=== PATIENT | female | born 1980 | race Caucasian/White ===

== ENCOUNTER → 2016-11-22 | Outpatient (CLI) | payer OTHER | LOC: LAB 13:04 | DX: E03.9 Hypothyroidism, unspecified (principal) ==

== ENCOUNTER → 2017-11-20 | Outpatient (CLI) | payer OTHER | LOC: LAB 08:54 | PROVIDERS: Family Medicine | DX: E03.9 Hypothyroidism, unspecified (principal); E78.00 Pure hypercholesterolemia, unspecified ==

== ENCOUNTER 2017-12-15 01:28 | Emergency (ER) | payer OTHER ==
[~2017-12-15] VITALS: Ht 160 cm; Wt 135.5 kg
[2017-12-15] MEDS ORDERED: SYNTHROID0.125 MG PO (01:48)
[2017-12-15] MEDS ORDERED: COUMADIN 77.5 MG/TAB PO (01:48)
[2017-12-15] MEDS ORDERED: COUMADIN 5MG5 MG/TAB PO (01:49)
[2017-12-15 02:54] LABS: BASO # 0.1 (0.02-0.10); EOS # 0.3 (0.04-0.40); EOS % 3.2 % (1.0-5.0); HEMATOCRIT 39.6 % (37.0-47.0); HEMOGLOBIN 12.8 g/dL (12.5-16.0); LYMPH# 2.9 (1.50-4.00); MEAN CELL VOLUME 80 fl (78-100); MEAN CORPUSCULAR HEMOGLOBIN 26 pg (27-31); MEAN CORPUSCULAR HGB CONC 32 g/dL (33-37); MEAN PLATELET VOLUME 8.9 fl (7.4-10.4); MONO # 0.7 (0.20-0.80); NEU # 5.6 (1.40-6.50); PLATELET COUNT 404 K/mm3 (130-400); RED BLOOD COUNT 4.96 M/mm3 (4.10-5.30); RED CELL DISTRIBUTION WIDTH 15.2 % (11.5-14.5); WHITE BLOOD COUNT 9.6 K/mm3 (4.8-10.8)
[2017-12-15 03:14] LABS: PROTHROMBIN TIME 21.1 SECONDS (9.0-12.0)
[2017-12-15 03:28] LABS: D-DIMER 0.1 mg/L FEU (0.15-0.50)
[2017-12-15] MEDS ORDERED: ULTRAM50 M1 PO (03:48)
[2017-12-15 04:00] VITALS: BP 164/78
== END 2017-12-15 04:00 | disposition home or self-care (01) ==
LOC: ED 01:28
PROVIDERS: Nurse Practitioner Primary Care
DX: S76.912A Strain of unspecified muscles, fascia and tendons at thigh level, left thigh, initial encounter (principal); Z86.718 Personal history of other venous thrombosis and embolism; Z79.01 Long term (current) use of anticoagulants; D68.2 Hereditary deficiency of other clotting factors

== ENCOUNTER → 2018-11-24 | Outpatient (CLI) | payer BC ==
[~2018-11-24] MED LIST: COUMADIN 5MG5 MG/TAB PO; COUMADIN 77.5 MG/TAB PO; SYNTHROID0.125 MG PO; ULTRAM50 M1 PO
== END ==
LOC: LAB 13:44
DX: E03.9 Hypothyroidism, unspecified (principal); E78.00 Pure hypercholesterolemia, unspecified

== ENCOUNTER → 2019-11-22 | Outpatient (CLI) | payer BC ==
[2019-11-22 08:58] LABS: POTASSIUM 4.6 mmol/L (3.5-5.1)
[2019-11-22 08:59] LABS: CALCIUM 9.4 mg/dL (8.3-10.5)
[2019-11-22 09:01] LABS: TOTAL PROTEIN 7.9 g/dL (6.4-8.3)
[2019-11-22 09:02] LABS: TOTAL BILIRUBIN 0.3 mg/dL (0.2-1.2)
== END ==
LOC: LAB 08:31
PROVIDERS: Family Medicine
DX: Z13.6 Encounter for screening for cardiovascular disorders (principal); E03.9 Hypothyroidism, unspecified; E78.00 Pure hypercholesterolemia, unspecified; E66.01 Morbid (severe) obesity due to excess calories

== ENCOUNTER → 2020-02-07 | Outpatient (CLI) | payer BC ==
[2020-02-07 12:24] LABS: URINE APPEARANCE CLEAR; URINE BILIRUBIN NEGATIVE (NEGATIVE); URINE BLOOD TRACE (NEGATIVE); URINE COLOR YELLOW; URINE GLUCOSE NEGATIVE (NEGATIVE); URINE KETONE NEGATIVE (NEGATIVE); URINE LEUKOCYTE ESTERASE NEGATIVE (NEGATIVE); URINE NITRATE NEGATIVE (NEGATIVE); URINE PROTEIN(semi-quant) NEGATIVE (NEGATIVE); URINE UROBILINOGEN NORMAL (NORMAL)
== END ==
LOC: LAB 12:01
PROVIDERS: Family Medicine
DX: Z51.81 Encounter for therapeutic drug level monitoring (principal); R10.814 Left lower quadrant abdominal tenderness

== ENCOUNTER → 2020-02-18 | Outpatient (CLI) | payer BC | LOC: LAB 10:58 | DX: E03.9 Hypothyroidism, unspecified (principal); E78.00 Pure hypercholesterolemia, unspecified ==

== ENCOUNTER → 2020-06-07 | Outpatient (CLI) | payer BC ==
[2020-06-07 12:13] LABS: PROTHROMBIN TIME 20.5 SECONDS (9.0-12.0)
== END ==
LOC: LAB 11:46
PROVIDERS: Family Medicine
DX: D68.51 Activated protein C resistance (principal)

== ENCOUNTER → 2020-10-10 | Outpatient (CLI) | payer BC ==
[2020-10-10 12:42] LABS: PROTHROMBIN TIME 22.2 SECONDS (9.0-12.0)
== END ==
LOC: LAB 12:17
PROVIDERS: Family Medicine
DX: D68.51 Activated protein C resistance (principal)

== ENCOUNTER → 2021-03-13 | Outpatient (CLI) | payer BC | LOC: LAB 08:56 | DX: E03.9 Hypothyroidism, unspecified (principal) ==

== ENCOUNTER 2021-06-04 09:37 | Emergency (ER) | payer BC ==
[~2021-06-04] VITALS: Wt 140.0 kg
[~2021-06-04 09:37] MED LIST changes: -COUMADIN 5MG5 MG/TAB PO; -COUMADIN 77.5 MG/TAB PO; +WARFARIN SOD5 MG PO; +WARFARIN SODIU7.5 MG PO
[2021-06-04] MEDS ORDERED: LEVOTHYROXIN0.137 MG PO (10:20)
[2021-06-04] MEDS ORDERED: LISINOPRIL10 MG PO (10:22)
[2021-06-04 10:23] LABS: BASO # 0.01 K/mm3 (0.02-0.10); EOS # 0.01 K/mm3 (0.04-0.40); EOS % 0.2 % (1.0-5.0); HEMATOCRIT 34.9 % (37.0-47.0); HEMOGLOBIN 10.3 g/dL (12.5-16.0); LYMPH# 1.42 K/mm3 (1.50-4.00); MEAN CELL VOLUME 70 fl (78-100); MEAN CORPUSCULAR HEMOGLOBIN 21 pg (27-31); MEAN CORPUSCULAR HGB CONC 30 g/dL (33-37); MEAN PLATELET VOLUME 9.4 fl (7.4-10.4); MONO # 0.38 K/mm3 (0.20-0.80); NEU # 3.43 K/mm3 (1.40-6.50); PLATELET COUNT 244 K/mm3 (130-400); RED BLOOD COUNT 5.02 M/mm3 (4.10-5.30); RED CELL DISTRIBUTION WIDTH 17.8 % (11.5-14.5); WHITE BLOOD COUNT 5.3 K/mm3 (4.8-10.8)
[2021-06-04 10:24] LABS: ALBUMIN 3.6 g/dL (3.5-5.0); POTASSIUM 3.8 mmol/L (3.5-5.1); SODIUM 139 mmol/L (136-145)
[2021-06-04 10:26] LABS: CALCIUM 8.3 mg/dL (8.3-10.5)
[2021-06-04 10:27] LABS: GLUCOSE 120 mg/dL (65-105); TOTAL PROTEIN 7.6 g/dL (6.4-8.3)
[2021-06-04 10:28] LABS: CARBON DIOXIDE 22 mmol/L (22-29)
[2021-06-04 10:29] LABS: TOTAL BILIRUBIN 0.4 mg/dL (0.2-1.2)
[2021-06-04 10:32] LABS: AST-SGOT 37 U/L (5-34)
[2021-06-04 10:33] LABS: ALT/SGPT 31 U/L (0-55)
[2021-06-04 10:41] LABS: TROPONIN-I < 0.030 ng/mL (<0.030)
[2021-06-04 11:06] LABS: PROTHROMBIN TIME 28.3 SECONDS (9.0-12.0)
[2021-06-04 12:25] LABS: D-DIMER 0.23 mg/L FEU (0.15-0.50)
[2021-06-04 12:51] LABS: URINE APPEARANCE CLEAR; URINE BILIRUBIN NEGATIVE (NEGATIVE); URINE BLOOD TRACE (NEGATIVE); URINE COLOR YELLOW; URINE GLUCOSE NEGATIVE (NEGATIVE); URINE KETONE NEGATIVE (NEGATIVE); URINE LEUKOCYTE ESTERASE TRACE (NEGATIVE); URINE NITRATE NEGATIVE (NEGATIVE); URINE PROTEIN(semi-quant) TRACE mg/dL (NEGATIVE); URINE UROBILINOGEN NORMAL (NORMAL)
[2021-06-04] MEDS ORDERED: MORGIDOX 1X100100 MG PO (13:30)
[2021-06-04 13:41] VITALS: BP 143/89
[2021-06-04] MEDS ORDERED: ALBUTEROL2.5 MG/3 M IH (13:54)
[2021-06-04] MEDS ORDERED: EASY AIR COMPR1 EACH MC (13:57)
== END 2021-06-04 13:50 | disposition home or self-care (01) ==
LOC: ED 09:37
PROVIDERS: Nurse Practitioner
DX: U07.1 COVID-19 (principal); E03.9 Hypothyroidism, unspecified; E66.01 Morbid (severe) obesity due to excess calories; E78.00 Pure hypercholesterolemia, unspecified; D68.51 Activated protein C resistance; Z91.040 Latex allergy status; Z88.1 Allergy status to other antibiotic agents; Z88.2 Allergy status to sulfonamides; Z79.890 Hormone replacement therapy; Z79.899 Other long term (current) drug therapy

== ENCOUNTER → 2021-06-14 | Outpatient (CLI) | payer BC ==
[~2021-06-14] MED LIST changes: +ALBUTEROL2.5 MG/3 M IH; +EASY AIR COMPR1 EACH MC; +LEVOTHYROXIN0.137 MG PO; +LISINOPRIL10 MG PO; +MORGIDOX 1X100100 MG PO
[2021-06-14 09:34] LABS: PROTHROMBIN TIME 54.9 SECONDS (9.0-12.0)
== END ==
LOC: LAB 09:06
PROVIDERS: Family Medicine
DX: D68.51 Activated protein C resistance (principal); K04.7 Periapical abscess without sinus

== ENCOUNTER → 2021-06-16 | Outpatient (CLI) | payer BC | LOC: LAB 16:57 | PROVIDERS: Family Medicine | DX: D68.51 Activated protein C resistance (principal); K04.7 Periapical abscess without sinus ==

== ENCOUNTER → 2022-03-12 | Outpatient (CLI) | payer BC | LOC: LAB 08:31 | DX: E03.9 Hypothyroidism, unspecified (principal) ==

== ENCOUNTER → 2023-03-26 | Outpatient (CLI) | payer BC | LOC: LAB 12:01 | DX: E03.9 Hypothyroidism, unspecified (principal) ==

== ENCOUNTER → 2024-02-02 | Outpatient (CLI) | payer BC ==
[2024-02-02 10:57] LABS: CALCIUM 9.1 mg/dL (8.3-10.5)
== END ==
LOC: LAB 10:17
PROVIDERS: Family Medicine
DX: E03.4 Atrophy of thyroid (acquired) (principal); I10 Essential (primary) hypertension